=== PATIENT | female | born 1990 | race Caucasian/White ===

== ENCOUNTER → 2021-04-24 | Outpatient (CLI) | payer SELFPAY ==
[2021-04-26 22:07] LABS: Chlamydia By Nucleic Acid AMP Negative (Negative)
[2021-04-27 16:08] LABS: Gonococcus By Nucleic Acid AMP Negative (Negative)
[2021-04-27 16:15] LABS: HPV Reflexed? NOT INDICATED
== END | disposition home or self-care (01) ==
LOC: LABSPEC 04-25 09:19
PROVIDERS: Visit Provider Obstetrics & Gynecology
DX: Z12.4 Encounter for screening for malignant neoplasm of cervix (principal); Z11.3 Encounter for screening for infections with a predominantly sexual mode of transmission
CPT/HCPCS: 87491; 87591; 88175; G0145

== ENCOUNTER 2021-08-20 12:42 | Inpatient (IN) | payer SELFPAY ==
[2021-08-19] VITALS (49 sets, daily range): BP systolic 97–127; BP diastolic 53–77; PULSE 68–106; RESP 14–18; TEMP 37.1–37.2; O2SAT 79–100; BMI 30.5
[2021-08-19] MEDS: Magnesium Sulfate 4gm/100mL 4 GM/100 ML IV.SOLN. IV (19:45)
[2021-08-19] MEDS: Lactated Ringers 1,000 ML 100 ML IV (19:49)
[2021-08-19] MEDS: Betamethasone/Betamethasone 30 MG/5 ML Vial 12 MG IM (19:49)
--- NOTE | 2021-08-19 19:49 | HP.PCM.OB_ITS ---
History and Physical Date of Admission: 08/19/21 Chief complaint: Cramping History present illness: 31-year-old G4, P3 at 26 weeks and 2 days with BOBBY 11/23/2021 by 10wk u/s arrives with cramping and vaginal spotting beginning today. Overall light amount of spotting but persistent. Cramping that comes and goes several times an hour. Denies headache, visual changes, chest pain, shortness of breath, nausea vomiting, right upper quadrant pain. Patient states good movement. is complicated by early cervical dilation rescue cerclage placed 06/2021 currently on vaginal progesterone, history of chlamydia this status post treatment Obstetric history: G1: 40-week male 08/2013 G2: 37-week male 01/2017 G3: 40-week primary section for prolonged second stage male 08/2018 G4: Current Past medical history: None Medications: vitamin Past surgical history: section Allergies: No known drug allergies Social history: Denies smoking, alcohol use, drug use Family history: Denies history DVT or PE Review of systems: Besides above pertinent positives a full review of systems was performed and found to be negative Physical exam: Vitals: Blood pressure 116/77 General: Normal-appearing no acute distress HEENT: Normocephalic atraumatic no cervical lymphadenopathy Cardiac/respiratory: No use of accessory muscles, nonlabored breathing Abdomen: Soft, nontender, gravid Pelvic exam: Sterile speculum exam performed with cerclage intact on no tension, no active bleeding. Cervix 2 cm( previously 2-4 cm prior to cerclage). No signs of ruptured membranes Extremities: No peripheral edema normal peripheral pulses Psych: Normal affect normal demeanor nonpressured speech Labs: CBC, type and screen pending Assessment and plan: 31-year-old G4, P3 at 26 weeks and 2 days with history of painless cervical dilation this status post cerclage 06/2021 currently with cramping and spotting. No active bleeding noted. Cerclage intact with no tension, no signs of rupture membranes and no signs of advanced dilation compared to previous examinations. [place] overall quiet, patient still with cramping. Overall reassuring, no signs of labor. Although no signs of labor based on examination because of symptoms will prophylactically treat with Celestone, magnesium for neuro protection, GBS prophylaxis with penicillin. Educated patient on findings and treatment plan, all questions answered patient states understanding and agrees. Discussed transport to tertiary facility with patient, patient declines understands that baby would need to be transported. Reviewed case with juvenile counselor who agrees okay for overnight observation based on current stable condition. We will continue inpatient observation. Surgery team made aware of patient
[2021-08-19 19:54] LABS: Absolute Lymphocyte Count 1.15 X10^3/uL (0.83-4.51); Absolute Neutrophil Count 9.3 X10^3/uL (2.0-7.7); Basophil# 0.02 X10^3/uL; Basophil% 0.2 % (0-1); Eosinophil# 0.04 X10^3/uL; Eosinophils% 0.4 % (0-5); Hemoglobin 11.7 g/dL (12.0-15.0); Lymphocyte # 1.15 X10^3/ul (0.83-4.51); Lymphocyte % 10.4 % (19-41); Mean Corp Hgb Conc 35.5 g/dL (32-36); Mean Corpuscular Volume 87.5 fL (81-99); Mean Platelet Vol. 8.9 fl (6.2-12.0); Monocyte# 0.43 X10^3/uL; Monocyte% 3.9 % (0-10); NRBC Flagged by Analyzer 0 % (0-5); Neutrophil # 9.33 X10^3/uL (2.7-7.7); Neutrophil % 84.6 % (47-70); Platelet Count 232 K/mm3 (150-450); RBC Distribution Width CV 15.4 % (11.6-14.6); RBC Distribution Width SD 49.1 fl (35.1-43.9); Red Blood Count 3.77 M/mm3 (4.2-5.4)
[2021-08-19] MEDS: Magnesium Sulfate 20 GM/500 ML BAG IV (20:12)
[2021-08-19 22:50] LABS: Chlamydia Trachomatis by PCR Negative (Negative); Neisserai gonorrhoeae by PCR Negative (Negative); Probe Check PASS; Sample Adequacy Control PASS; Specimen Processing Control PASS
[2021-08-19] MEDS: Penicillin G 3,000,000 Units 50 ML 100 UNITS IV (23:59)
[2021-08-20] VITALS (134 sets, daily range): BP systolic 85–123; BP diastolic 42–71; PULSE 64–98; RESP 10–20; TEMP 36.1–37.1; O2SAT 92–100
[2021-08-20 02:30] LABS: Magnesium 4.8 mg/dL (1.6-2.6)
[2021-08-20] MEDS: Penicillin G 3,000,000 Units 50 ML 100 UNITS IV (04:06)
[2021-08-20] MEDS: Magnesium Sulfate 20 GM/500 ML BAG IV (05:08)
[2021-08-20] MEDS: Lactated Ringers 1,000 ML 100 ML IV ×2 (05:08→18:31)
--- NOTE | 2021-08-20 08:48 | PN.OBGYN_ITS ---
Subjective Subjective Patient feeling much improved today. Reports she does still have some spotting but it is less than yesterday. Cramping has resolved. Is feeling okay on magnesium. Reports movement, no leaking of fluid. Objective Data Objective Data Vital Signs: Vital Signs Temp Pulse Resp BP Pulse Ox 98.8 F 82 18 119/68 98 08/20/21 06:08 08/20/21 08:22 08/20/21 07:01 08/20/21 08:00 08/20/21 08:22 Oxygen Delivery Method Room Air Weight: 85.899 kg Body Mass Index (BMI) 30.5 Intake & Output: Intake and Output for Last 24 Hours 08/18/21 08/19/21 08/20/21 23:59 23:59 23:59 Intake Total 205 / 205 1478.34 / 1478.34 Output Total 350 / 350 500 / 500 Balance -145 / -145 978.34 / 978.34 Lab / Micro Data Result Diagrams: 08/19/21 19:40 Labs: Laboratory Results - last 24 hr 08/19/21 19:40: WBC 11.0, RBC 3.77 L, Hgb 11.7 L, Hct 33.0 L, MCV 87.5, MCH 31.0, MCHC 35.5, RDW Std Deviation 49.1 H, RDW Coeff of Luis 15.4 H, Plt Count 232, MPV 8.9, Immature Gran % (Auto) 0.500, Neut % (Auto) 84.6 H, Lymph % (Auto) 10.4 L, [place] % (Auto) 3.9, Eos % (Auto) 0.4, Baso % (Auto) 0.2, Absolute Neuts (auto) 9.3 H, Absolute Lymphs (auto) 1.15, Nucleated RBC % 0 08/19/21 19:40: Blood Type O POSITIVE, Antibody Screen NEGATIVE 08/19/21 20:58: Chlam trachomat DNA PCR Negative, N.gonorrhoeae DNA (PCR) Negative 08/20/21 02:10: Magnesium 4.8 H Micro: Microbiology 08/19/21 20:50 Nasal Secretion SARS-CoV-2 Antigen (Rapid) - Final Physical Exam Const alert, oriented x3 and no apparent distress HEENT normocephalic Head and Scalp: atraumatic Resp normal respiratory effort Cardio regular rate GI normal to inspection, nondistended, normoactive bowel sounds Inspection: gravid Extremity no pedal edema Psych mental status grossly normal and affect normal NST FHR Rate Baby A Baseline: 145 Variability:: Moderate Accelerations:: 15 x 15 Decelerations:: None NST Reactive:: Yes FHR Category:: Category I Assessment & Plan (1) Cervical incompetence: COMMENT: 2021- cerclage placed at 21 weeks PLAN: [id number], P3 at 26/3 weeks, admitted with cramping and vaginal spotting on 08/19. This is complicated by history of cervical incompetency with cerclage placement. -Patient was admitted and placed on 12 hours of magnesium for neuro protection, penicillin for GBS prophylaxis for concern for labor. -This morning she is feeling much improved, cramping has resolved. Spotting is decreased. -We will stop magnesium and penicillin at this time. -Plan for observation throughout the day. -Due for Celestone tonight -Continue continuous monitoring at this time. Will consider NST every shift overnight. Diet: Clears for now, if patient continues to be stable and without cramping at noon, will advance to regular diet IV fluids: Hep-Lock IV DVT prophylaxis: Ambulate, SCDs while in bed Dispo: Plan for continue observation off of magnesium sulfate today. We will plan to discharge tomorrow morning if stable.
[2021-08-20] MEDS: 0.9% Saline Lock 10 ML Syringe IV ×2 (09:18→21:05)
--- NOTE | 2021-08-20 12:55 | PCM.PN.OB ---
Subjective Subjective Patient with increased pelvic cramping. Mucousy discharge Objective Data Objective Data Vital Signs: Vital Signs Temp Pulse Resp BP Pulse Ox 97.9 F 81 16 117/71 100 08/20/21 09:00 08/20/21 12:11 08/20/21 09:00 08/20/21 12:11 08/20/21 09:00 Oxygen Delivery Method Room Air Weight: 189 lb 6 oz Body Mass Index (BMI) 30.5 Intake & Output: Intake and Output for Last 24 Hours 08/18/21 08/19/21 08/20/21 23:59 23:59 23:59 Intake Total 205 / 205 1677.51 / 1677.51 Output Total 350 / 350 500 / 500 Balance -145 / -145 1177.51 / 1177.51 Lab / Micro Data Result Diagrams: 08/19/21 19:40 Labs: Laboratory Results - last 24 hr 08/19/21 19:40: WBC 11.0, RBC 3.77 L, Hgb 11.7 L, Hct 33.0 L, MCV 87.5, MCH 31.0, MCHC 35.5, RDW Std Deviation 49.1 H, RDW Coeff of Luis 15.4 H, Plt Count 232, MPV 8.9, Immature Gran % (Auto) 0.500, Neut % (Auto) 84.6 H, Lymph % (Auto) 10.4 L, [place] % (Auto) 3.9, Eos % (Auto) 0.4, Baso % (Auto) 0.2, Absolute Neuts (auto) 9.3 H, Absolute Lymphs (auto) 1.15, Nucleated RBC % 0 08/19/21 19:40: Blood Type O POSITIVE, Antibody Screen NEGATIVE 08/19/21 20:58: Chlam trachomat DNA PCR Negative, N.gonorrhoeae DNA (PCR) Negative 08/20/21 02:10: Magnesium 4.8 H Micro: Microbiology 08/19/21 20:50 Nasal Secretion SARS-CoV-2 Antigen (Rapid) - Final Physical Exam Const alert, oriented x3, no apparent distress, average body habitus, healthy appearing and well nourished HEENT normocephalic and moist oral mucous membranes Head and Scalp: atraumatic Face and Sinus: normal facial exam Neck full ROM Resp normal respiratory effort, no retractions and no use of accessory muscles Narrative: Sterile speculum exam performed. Cervix 4 cm dilated, bulging membranes intact. Cerclage intact. No cervical trauma noted at this time Extremity normal to inspection, full ROM and no clubbing, cyanosis or edema Psych mental status grossly normal, affect normal, speech normal and activity/motor behavior normal Assessment & Plan (1) : PLAN: Patient seen and examined, cervical dilation noted with bulging membranes now in need of repeat section now. Educated patient on findings risk-benefit alternatives, patient states understanding and wished to proceed. All questions were answered and consent was signed. Patient understands baby will ultimately need to be transported to tertiary center. Patient states understanding. For 2 g Ancef and 500 mg of azithromycin. Reviewed case with marketing segment manager.
[2021-08-20] MEDS: Lactated Ringers 1,000 ML 999 ML IV (13:23)
[2021-08-20] MEDS: Sodium Citrate/Citric Acid 30 ML UDC PO (13:37)
[2021-08-20] MEDS: Acetaminophen 500 MG Tablet 1000 MG PO ×2 (13:37→20:25)
[2021-08-20] MEDS: Cefazolin 2 GM in 0.9% Normal Saline 100 ML IV (13:39)
--- NOTE | 2021-08-20 14:07 | FALS_PTH ---
PATIENT: NGUYỄN GLORIA LOC: [facility] U#:[id number] AGE/SX: 31/F ROOM: WP009 RE08/20/[address]: Dr. Karan Gloria MD : 1990 BED: 1 DIS: 08/22/2021 SPEC #: [id number] RECD: 08/20/21 15:51 STATUS: JEANNE CONI #: [id number] CHASITY: 08/20/21 14:[address]: Karan Gloria DEPT: SURGICAL PATHOLOGY RECD BY: Damaris Dowd Tissues: A - Fallopian tube B - Placenta, NOS Procedures: Surgery Specimen Level II Surgery Specimen Level V HEADER OPERATION: Tubal ligation, repeat section PRE-OP DIAGNOSIS: Sterilization, delivery TISSUE SUBMITTED: A - Fallopian tubes, B - Placenta MICROSCOPIC DIAGNOSIS A. Right and left fallopian tubes, bilateral salpingectomies: Right fallopian tube ? complete cross-sections of fallopian tube with no pathologic change. Left fallopian tube ? complete cross-sections of fallopian tube with no pathologic change. B. Garay placenta (296 gm): Umbilical cord ? trivascular with no evidence of inflammation. Placental membranes ? acute chorioamnionitis and acute deciduitis. Placental disc ? acute deciduitis, mild Usama-Hussain change and intervillous congestion. AM:ac 08/23/2021 MICROSCOPIC DESCRIPTION Slides are reviewed. GROSS DESCRIPTION A - Received in fixative is one container labeled with the patient's name and designated bilateral fallopian tubes, right with string. The specimen consists of bilateral fallopian tubes including fimbrial ends. The right fallopian tube measures 7 cm in length and 0.4 cm in diameter and the left fallopian tube measures 9 cm in length and 0.5 cm in diameter. Sections reveal unremarkable cut surfaces. [employer] Appliance Installer sections are submitted in two cassettes as follows: 1 ? right fallopian tube, 2 ? left fallopian tube. / SJ:ac 08/21/2021 B - SPECIMEN: PLACENTA / CLINICAL INFORMATION: A. Weight: Not listed B. Gestational Age: 26 weeks C. Sex: Male PLACENTAL WEIGHT (POST FIXATION): 296 gm PLACENTAL DIMENSIONS: Placental disc is received in four fragments ranging in size from 6 cm to 12?cm PLACENTAL SHAPE: Usual ovoid PLACENTAL WEIGHT FOR GESTATIONAL AGE: Within 10-99th percentile MEMBRANES - Present A. Insertion: Marginal B. Site of rupture from edge: At edge of placental disc C. Color of membrane: Frost-james D. Abnormalities: None UMBILICAL CORD - Present A. Color: Frost-james B. Insertion: Eccentric C. Length: 21 cm D. Diameter: 1.2 cm E. Number of vessels: Three F. Abnormalities: None PLACENTAL DISC - Present A. Color of surface: Frost-james B. surface abnormalities: None C. Maternal cotyledons: Intact with minimal tears D. Attached retro placental clot: No clot E. Cut surface: Dark red and spongy F. Lesions: None G. Separate clot: Absent SECTIONS SUBMITTED: 1. Umbilical cord ( end notched) 2. Umbilical cord, placental end 3. Membrane roll 4. Placental disc, and maternal surfaces 5. Placental disc, and maternal surfaces, largest fragment of placental disc 6. Placental disc, and maternal surfaces, fragments free in container AM:ac 08/22/2021 TC:2 CPT: 67374 x2, 31851
--- NOTE | 2021-08-20 14:55 | EX.PCM.OBRPT ---
Details Operative Information Date of Procedure: 08/20/21 Pre-Operative Diagnosis: labor, incompetent cervix, transverse lie, desires permanent sterilization Post-Operative Diagnosis: labor, incompetent cervix, transverse lie, desires permanent sterilization storage consultant #1: Duke Ryan Findings Description of Procedure: Procedure: Repeat classical section and bilateral tubal ligation Via Pfannenstiel incision, cerclage removal Surgeon: Karan Rodriguez MD Anesthesia: Spinal EBL: 700 cc Urine output: 100 cc IV fluids: 1300 cc Complications: None Specimen: Placenta, bilateral fallopian tubes, possible degenerating fibroid Findings: Male in transverse head maternal left back down, Apgars see marriage and family counselor notes. Bicornuate uterus with left uterine horn noted and possible degenerating fibroid noted and sent to pathology. Otherwise normal uterus, tubes, and ovaries. Cerclage removed through hysterotomy. Consent: Patient arrived with cramping and known cervical incompetence with cerclage found to have stable cervix based on previous exams given magnesium, Celestone, GBS prophylaxis. After 12 hours patient feels much improved, after stopping previously noted meds patient began cramping, and upon examination patient had advanced cervical dilation and bulging membranes. Bedside ultrasound revealed transverse lie back down. Patient in need of repeat classical section and bilateral tubal ligation, removal of cerclage. Patient understands the risk of the procedure include but are not limited to visceral or vascular injury, prolonged hospitalization, blood loss and need for transfusion, reoperation. Patient understands tubal ligation is permanent. Patient states understanding and wishes to proceed. All questions were answered and consent was signed. Procedure: Patient was brought back to the OR where spinal anesthesia was found to be adequate. 2 g of Ancef and 500 mg of azithromycin were given for infection prophylaxis. Patient was prepared and draped in a supine position with leftward tilt. A Pfannenstiel incision was made at the skin with a scalpel. The fascia was excised and extended with a scalpel. Inferior aspect of the fascia was grasped with a clamp and the underlying rectus and pyramidalis muscle were dissected off sharply with Ball scissors. In a similar fashion the superior aspect of the fascia was grasped with a clamp and the underlying rectus muscle was dissected off sharply. Rectus muscle was dissected at the midline down to the level of pubic symphysis. Preperitoneal fatty tissue was noted and peritoneum was entered bluntly. Peritoneum was extended superiorly and inferiorly with good visualization of bladder. Bladder blade was inserted and vesicouterine peritoneum was identified. Classical vertical midline hysterotomy was made. Hand was placed into the incision and baby was transitioned to cephalic and delivered in usual fashion. Cord was cut and clamped. Baby is handed off to nursing. Placenta was delivered via manual extraction. Uterus was exteriorized and wiped out with dry laparotomy sponge in order to remove remaining placental membranes. As noted above possible degenerating fibroid noted and manually removed. Cerclage was palpable and was removed. Uterus was closed with delayed absorbable suture; 1 CTX Vicryl running locking, 2-0 CT1 Vicryl running, 1 CTX Vicryl [id number], 3-0 Vicryl baseball stitch. Good hemostasis was noted after closing uterus in multiple layers. FloSeal was placed over the incision. Right fallopian tube was identified to the fimbria and the mesosalpinx was cut and cauterized with LigaSure device, tubes sent to pathology. Left fallopian tube was identified to the fimbria and mesosalpinx was cut and cauterized with LigaSure device, sent to pathology. Good hemostasis was noted bilaterally. Uterus was placed back in the abdominal cavity and good hemostasis was noted. Rectus muscles reapproximated with horizontal mattress sutures. Fascia was closed in a continuous running fashion with PDS suture. Subcu irrigation was performed. Skin was closed in subcutaneous fashion. All counts were correct x2. Patient tolerated procedure well and was brought to recovery in stable condition.
[2021-08-20] MEDS: Oxytocin 30 units/NS 500 ml 30 UNITS/500 ML IV.SOLN 167 UNITS IV (15:05)
[2021-08-20] MEDS: Ketorolac 30 MG/ML Syringe IV ×2 (15:35→21:05)
[2021-08-20 15:51] LABS: Pathology Specimen OB SEE PATHOLOGY REPORT
[2021-08-20 19:50] LABS: Pathology Specimen OB SEE PATHOLOGY REPORT
[2021-08-21] VITALS (9 sets, daily range): BP systolic 99–124; BP diastolic 56–87; PULSE 74–89; RESP 16–18; TEMP 35.9–36.8; O2SAT 95–99
[2021-08-21] MEDS: Acetaminophen 500 MG Tablet 1000 MG PO ×2 (01:00→18:21)
[2021-08-21] MEDS: Ketorolac 30 MG/ML Syringe IV ×2 (02:47→09:46)
[2021-08-21] MEDS: 0.9% Saline Lock 10 ML Syringe IV ×4 (02:50→09:46)
[2021-08-21] MEDS: Enoxaparin 40 MG/0.4 ML Syringe SC (04:26)
[2021-08-21 04:38] LABS: Hematocrit 28.3 % (37-47); Hemoglobin 9.6 g/dL (12.0-15.0); Mean Corp Hgb Conc 33.9 g/dL (32-36); Mean Corpuscular Hgb 30.6 pg (27.0-32.0); Mean Corpuscular Volume 90.1 fL (81-99); Platelet Count 201 K/mm3 (150-450); RBC Distribution Width CV 15.8 % (11.6-14.6); RBC Distribution Width SD 51.8 fl (35.1-43.9); Red Blood Count 3.14 M/mm3 (4.2-5.4); White Blood Count 11.6 K/mm3 (4.4-11.0)
[2021-08-21] MEDS: Ondansetron 4 MG/2 ML Vial IV (06:19)
[2021-08-21] MEDS: proCHLORPERazine 10 MG/2 ML Vial IV (07:02)
--- NOTE | 2021-08-21 09:16 | PN.OBGYN_ITS ---
Subjective Subjective c/o nausea and vomiting with emesis 7 times since 0300h. She denies headache, vision changes, lightheadedness or dizziness, fever, chills. Pain is well controlled. No flatus or bowel movement. Denies heavy lochia. Objective Data Objective Data Vital Signs: Vital Signs Temp Pulse Resp BP Pulse Ox 96.6 F L 79 17 110/81 H 98 08/21/21 08:00 08/21/21 08:00 08/21/21 08:00 08/21/21 08:00 08/21/21 02:46 Oxygen Delivery Method Room Air Weight: 85.899 kg Body Mass Index (BMI) 30.5 Intake & Output: Intake and Output for Last 24 Hours 08/19/21 08/20/21 08/21/21 23:59 23:59 23:59 Intake Total 205 / 205 5502.51 / 5502.51 1623.33 / 1623.33 Output Total 350 / 350 750 / 750 950 / 950 Balance -145 / -145 4752.51 / 4752.51 673.33 / 673.33 Lab / Micro Data Result Diagrams: 08/21/21 04:30 Labs: Laboratory Results - last 24 hr 08/21/21 04:30: WBC 11.6 H, RBC 3.14 L, Hgb 9.6 L, Hct 28.3 L, MCV 90.1, MCH 30.6, MCHC 33.9, RDW Std Deviation 51.8 H, RDW Coeff of Luis 15.8 H, Plt Count 201, MPV 9.0 Micro: Microbiology 08/19/21 20:50 Nasal Secretion SARS-CoV-2 Antigen (Rapid) - Final Physical Exam Const alert, oriented x3 and no apparent distress Resp normal respiratory effort, normal air movement and clear to auscultation bilaterally Cardio regular rate, regular rhythm, S1 normal heart sound and S2 normal heart sound GI normal to inspection, nondistended, normoactive bowel sounds, soft to palpation, non-tender and non-distended Manual OB Exam: other lochia scant Uterus Palpation: uterus fundus firm Extremity no calf tenderness and no pedal edema Assessment & Plan (1) delivery delivered: PLAN: POD#1 post classical c/s, early O positive Routine [facility]op care at [facility] (2) Vomiting: QUALIFIERS: Vomiting type: unspecified Nausea presence: with nausea Qualified Code(s): R11.2 - Nausea with vomiting, unspecified PLAN: Chewing gum Antiemetics CLD
[2021-08-21] MEDS: Senna/Docusate Sodium 1 Tablet PO (09:45)
[2021-08-21] MEDS: Bisacodyl 10 MG Suppository RC (15:08)
[2021-08-21] MEDS: proMETHazine 25 MG/ML Syringe 12.5 MG IM (16:31)
--- NOTE | 2021-08-21 16:57 | NURSING ---
Po meds held d/t vomiting. Has vomited 4 times since 8AM. Ambulation encouraged. Passed a large amt of gas and had a BM after suppository.
[2021-08-21] MEDS: Ibuprofen 600 MG Tablet PO (18:20)
[2021-08-22 01:13] VITALS: BP 115/68; PULSE 72; RESP 18; TEMP 36.2
[2021-08-22] MEDS: Ibuprofen 600 MG Tablet PO (01:13)
[2021-08-22] MEDS: Acetaminophen 500 MG Tablet 1000 MG PO (01:14)
[2021-08-22] MEDS: Metoclopramide 5 MG TABLET PO (07:25)
[2021-08-22 08:00] VITALS: BP 106/65; PULSE 74; RESP 16; TEMP 36.2; O2SAT 97
[2021-08-22 08:26] LABS: Hematocrit 29.5 % (37-47); Hemoglobin 10.1 g/dL (12.0-15.0); Mean Corp Hgb Conc 34.2 g/dL (32-36); Mean Corpuscular Hgb 31.2 pg (27.0-32.0); Mean Platelet Vol. 8.7 fl (6.2-12.0); Platelet Count 243 K/mm3 (150-450); RBC Distribution Width CV 15.9 % (11.6-14.6); RBC Distribution Width SD 52.7 fl (35.1-43.9); Red Blood Count 3.24 M/mm3 (4.2-5.4); White Blood Count 10.4 K/mm3 (4.4-11.0)
--- NOTE | 2021-08-22 08:35 | PCM.PN.OB ---
Subjective Subjective Patient without complaints. Tolerating diet well. Positive flatus and BM. Wants to go home later today if possible. Nausea presumably from magnesium sulfate has cleared. Objective Data Objective Data Vital Signs: Vital Signs Temp Pulse Resp BP Pulse Ox 97.2 F L 74 16 106/65 97 08/22/21 08:00 08/22/21 08:00 08/22/21 08:00 08/22/21 08:00 08/22/21 08:00 Oxygen Delivery Method Room Air Weight: 189 lb 6 oz Body Mass Index (BMI) 30.5 Intake & Output: Intake and Output for Last 24 Hours 08/20/21 08/21/21 08/22/21 23:59 23:59 23:59 Intake Total 5502.51 / 5502.51 1623.33 / 1623.33 Output Total 750 / 750 1750 / 1750 Balance 4752.51 / 4752.51 -126.67 / -126.67 Lab / Micro Data Result Diagrams: 08/22/21 08:12 08/22/21 08:12 Labs: Laboratory Results - last 24 hr 08/22/21 08:12: WBC 10.4, RBC 3.24 L, Hgb 10.1 L, Hct 29.5 L, MCV 91.0, MCH 31.2, MCHC 34.2, RDW Std Deviation 52.7 H, RDW Coeff of Luis 15.9 H, Plt Count 243, MPV 8.7 Micro: Microbiology 08/19/21 20:50 Nasal Secretion SARS-CoV-2 Antigen (Rapid) - Final Assessment & Plan (1) delivery delivered: PLAN: Doing well postoperative day #2 status post classical section for incompetent cervix at 26+ weeks gestation. Bilateral salpingectomy for sterilization done. Will discharge to home with routine instructions. Declines oxycodone prescription.
--- NOTE | 2021-08-22 08:37 | PCM.DC ---
Discharge Instructions Diet Discharge Diet: No restrictions Activity May resume sexual activity in: 4-6 weeks Lifting Restrictions: 20 pounds Dressing / Incision Call your doctor if your incision/area has: Continuous Slow Oozing, Sudden Increased Bleeding, Increased Pain/ Swelling, Increased Redness and Foul Smelling Discharge Call your doctor if you observe: Fever of 101 or Higher, Inability to urinate, Inability to have a bowel movement and Using more than 1 pad per hour Follow Up Care Please Follow Up With: Nhan Gonsales MD When: Call [phone] for appointment to be seen in 2 weeks. Test Results: Test results from this visit will be discussed in further detail at your follow-up appointment, if applicable. Discharge Plan Admission Admit Date/Time: 08/20/21 12:42 Primary Reason for Your Visit: Repeat and Tubal Attending Provider: Karan Rodriguez Discharge Orders/Prescriptions Prescriptions: New docusate sodium 100 mg tablet 100 mg PO BID PRN (Reason: constipation) Qty: 60 RF: 1 Continued 1 tab PO/SL DAILY RF: 0 Discontinued progesterone 25 mg OTHER QHS RF: 0 Disposition Disposition (needs filled in before D/C Order can be placed): Home, Self Care
--- NOTE | 2021-08-22 08:43 | PCM.DC.SUM ---
Providers Date of Admission: 08/20/21 Reason For Visit: PRIMARY C SECTION Diagnosis Discharge Diagnosis (1) delivery delivered: Status: Acute Code(s): O82 - Encounter for delivery without indication Medications at Discharge Home Medications 1 tab PO/SL DAILY 08/19/21 docusate sodium 100 mg PO BID PRN #60 tab 08/22/21 Weight / BMI Weight Weight: 189 lb 6 oz Body Mass Index (BMI) 30.5 ABG / Lab / Microbiology Data Result Diagrams: 08/22/21 08:12 08/22/21 08:12 Laboratory: Laboratory Results - last 24 hr 08/22/21 08:12: WBC 10.4, RBC 3.24 L, Hgb 10.1 L, Hct 29.5 L, MCV 91.0, MCH 31.2, MCHC 34.2, RDW Std Deviation 52.7 H, RDW Coeff of Luis 15.9 H, Plt Count 243, MPV 8.7 Microbiology: Microbiology 08/19/21 20:50 Nasal Secretion SARS-CoV-2 Antigen (Rapid) - Final D/C Instructions Discharge Diet: No restrictions May resume sexual activity in: 4-6 weeks Call your doctor if your incision/area has: Continuous Slow Oozing, Sudden Increased Bleeding, Increased Pain/ Swelling, Increased Redness and Foul Smelling Discharge Call your doctor if you observe: Fever of 101 or Higher, Inability to urinate, Inability to have a bowel movement and Using more than 1 pad per hour Please Follow Up With: Nhan Gonsales MD When: Call [phone] for appointment to be seen in 2 weeks. Meaningful Use Info Meaningful Use Diagnoses (Choose all that apply): None applicable Discharge Plan Admission Admit Date/Time: 08/20/21 12:42 Primary Reason for Your Visit: Repeat and Tubal Attending Provider: Karan Rodriguez Discharge Orders/Prescriptions Prescriptions: New docusate sodium 100 mg tablet 100 mg PO BID PRN (Reason: constipation) Qty: 60 RF: 1 Continued 1 tab PO/SL DAILY RF: 0 Discontinued progesterone 25 mg OTHER QHS RF: 0 Disposition Disposition (needs filled in before D/C Order can be placed): Home, Self Care
[2021-08-22 08:57] LABS: ALB/GLOB Ratio 0.6 RATIO (0.9-2.4); AST(SGOT) 20 U/L (15-37); Alanine Aminotransfer ALT/SGPT 19 U/L (13-56); Albumin, Serum 2.4 g/dL (3.2-5.0); Alkaline Phosphatase 75 U/L (45-117); Anion Gap 4 (5-15); BUN 11 mg/dL (7-18); BUN/Creat Ratio 20.8 RATIO (10-20); Calcium,Total 8.8 mg/dL (8.5-10.1); Chloride 110 mmol/L (98-107); Creatinine, Serum 0.53 mg/dL (0.55-1.02); EST Glomerular Filtration Rate 143 mL/min (>60); Est Glom Filt Rate - Afr Amer 173 mL/min (>60); Estimated Creatinine Clearance 143.98 ml/min; Globulin 4.3 g/dL (2.2-4.2); Glucose 108 mg/dL (74-106); Potassium 4.3 mmol/L (3.5-5.1); Protein, Total 6.7 g/dL (6.4-8.2); Sodium Level 138 mmol/L (136-145)
== END 2021-08-22 10:30 | disposition home or self-care (01) | DRG 783 ==
LOC: WPOUT 13:03 → WP 14:32
PROVIDERS: Obstetrics & Gynecology; Admitting Provider Obstetrics & Gynecology; Visit Provider Obstetrics & Gynecology
DX: O34.212 Maternal care for vertical scar from previous cesarean delivery (principal); O60.13X0 Preterm labor second trimester with preterm delivery third trimester, not applicable or unspecified; O34.32 Maternal care for cervical incompetence, second trimester; O41.1230 Chorioamnionitis, third trimester, not applicable or unspecified; R11.2 Nausea with vomiting, unspecified; O90.89 Other complications of the puerperium, not elsewhere classified; O32.2XX0 Maternal care for transverse and oblique lie, not applicable or unspecified; O26.852 Spotting complicating pregnancy, second trimester; O34.02 Maternal care for unspecified congenital malformation of uterus, second trimester; Q51.3 Bicornate uterus; Z37.0 Single live birth; Z3A.26 26 weeks gestation of pregnancy; Z87.59 Personal history of other complications of pregnancy, childbirth and the puerperium
CPT/HCPCS: 59025; 59050; 76815; 80053; 83735; 85025; 85027; 86850; 86900; 86901; 87426; 87491; 87591; 88302; 88307; 96372; 99218; 99251; J7120; A4216; G0378; G0463; J0702; J2405